=== PATIENT | male | born 1995 | race Caucasian/White ===

== ENCOUNTER 2017-04-07 01:36 | Emergency (ER) | payer OTHER ==
[2017-04-07 01:42] VITALS: RESP 16; TEMP 98.1
--- NOTE | 2017-04-07 02:54 | EDPHY ---
H & P Stated Complaint: fall/head lac Time Seen by Provider: 04/07/17 01:39 HPI/ROS: HPI: The patient presents with forehead laceration which occurred just prior to arrival. He was out drinking alcohol tonight and was staying at a friend's house on the couch. He got up to go to the bathroom and when he was walking back in the dark room trying to make his way to the sofa he tripped and fell forward, hitting his head on a stone fireplace. He did not lose consciousness. He does not have a headache, nausea or vomiting, vision changes, weakness of his arms or legs. His tetanus vaccine is up-to-date. REVIEW OF SYSTEMS Constitutional: No fever, no chills. Eyes: No discharge. ENT: No sore throat. Musculoskeletal: No back pain. Skin: No rashes. Neurological: No headache. PMHx: Healthy TRAUMA PHYSICAL General Appearance: Alert, no distress Head: 6 cm laceration to right forehead at hairline, no galea involvement Eyes: Pupils equal, round, reactive ENT, Mouth:, no oral trauma Neck: Non- tender, trachea midline Respiratory: Breathing comfortably Abdomen: Abdomen is soft and non-tender, pelvis stable Skin: No lacerations, No abrasion Extremities: Non-tender, full range of motion Neurological: A&Ox3, GCS=15,normal motor function with 5/5 strength in all 4 extremities, normal sensory exam Source: Patient, EMS Exam Limitations: No limitations - Personal History Current Tetanus/Diphtheria Vaccine: Unsure Current Tetanus Diphtheria and Acellular Pertussis (TDAP): Unsure - Medical/Surgical History Hx Asthma: No Hx Chronic Respiratory Disease: No Hx Diabetes: No Hx Cardiac Disease: No Hx Renal Disease: No Hx Cirrhosis: No Hx Alcoholism: No Hx HIV/AIDS: No Hx Splenectomy or Spleen Trauma: No Other PMH: wisdom teeth - Social History Smoking Status: Never smoked Constitutional: Initial Vital Signs Temperature (C) 36.7 C 04/07/17 01:41 Heart Rate 89 04/07/17 01:41 Respiratory Rate 16 04/07/17 01:41 Blood Pressure 143/98 H 04/07/17 01:41 O2 Sat (%) 98 04/07/17 01:41 O2 Delivery Mode Room Air Allergies/Adverse Reactions: No Known Allergies Allergy (Unverified 04/07/17 01:41) Home Medications: Medication Instructions Recorded NK [No Known Home Meds] 04/07/17 Medical Decision Making Procedures: LACERATION REPAIR Procedure: Laceration repair. Verbal consent was obtained from the patient. The 6 cm linear laceration on the right forehead was anesthetized using lidocaine with epinephrine. The wound was scrubbed, draped and explored to its base with a gloved finger. There were no deep structures involved. No tendon injury was identified. . The wound was repaired with 5. 0 simple interrupted sutures of nylon. The wound repair was simple. The procedure was performed by myself. Differential Diagnosis: This is a 22-year-old man who is brought in by ambulance after a fall which occurred just prior to arrival. He was slightly intoxicated, walking to a couch in the dark when he fell, landing on a fireplace, sustaining a laceration to his forehead. He did not have any loss of consciousness, headache, vomiting , weakness of his arms or legs, I do not feel he meets criteria for CT scanning to evaluate for intracranial hemorrhage. He may have sustained a mild concussion. In the emergency department, laceration was repaired by me. He was given instructions on wound care. He is sober enough for discharge and left in good condition. Departure - Departure Disposition: Home, Routine, Self-Care Clinical Impression: Fall Qualifiers: Encounter type: initial encounter Qualified Code(s): W19.XXXA - Unspecified fall, initial encounter Laceration of head Qualifiers: Encounter type: initial encounter Location of open wound of head: scalp Foreign body presence: without foreign body Qualified Code(s): S01.01XA - Laceration without foreign body of scalp, initial encounter Condition: Good Instructions: Care For Your Stitches (ED), Facial Laceration (ED) Additional Instructions: You can return to the emergency room in 5 days to have your stitches removed. Otherwise you can see her primary care doctor and they can take him out in the office. Referrals: KIRAN MOTA [Other] - As per Instructions
[2017-04-07 03:11] VITALS: BP 119/75; PULSE 86; O2SAT 96
== END 2017-04-07 03:10 | disposition home or self-care (01) ==
LOC: EDBD 01:36
PROC: 0HQ1XZZ Repair Face Skin, External Approach (ICD-10-PCS; principal; 2017-04-07)
DX: S01.81XA Laceration without foreign body of other part of head, initial encounter (principal); W01.198A Fall on same level from slipping, tripping and stumbling with subsequent striking against other object, initial encounter; Y92.009 Unspecified place in unspecified non-institutional (private) residence as the place of occurrence of the external cause; Y99.8 Other external cause status; Y93.01 Activity, walking, marching and hiking

== ENCOUNTER 2018-09-06 19:34 | Emergency (ER) | payer OTHER ==
[2018-09-06] MEDS ORDERED: diphenhydrAMINE 25 MG CAP PO ONE ×2 (20:24→20:27)
--- NOTE | 2018-09-06 20:24 | EDPHY ---
H & P Stated Complaint: Allergic Reation & Diarrhea Time Seen by Provider: 09/06/18 19:59 HPI/ROS: CHIEF COMPLAINT: Allergic reaction HISTORY OF PRESENT ILLNESS: The patient is a 23-year-old healthy man with no significant past medical history or allergies. He states that about an hour ago he felt sudden abdominal cramping and had diarrhea. During the episode of diarrhea he developed hives over his chest and back. Although symptoms have now resolved. He did not take any medications. No fevers. No vomiting or nausea. No new foods or exposures. No insect bites. Severity: Moderate Modifying factors: Currently asymptomatic REVIEW OF SYSTEMS: Constitutional: denies: chills, fever, recent illness, recent injury EENTM: denies: blurred vision, double vision, nose congestion Respiratory: denies: cough, shortness of breath Cardiac: denies: chest pain, irregular heart rate, lightheadedness, palpitations Gastrointestinal/Abdominal: See HPI Genitourinary: denies: dysuria, frequency, hematuria, pain Musculoskeletal: denies: joint pain, muscle pain Skin: See HPI Neurological: denies: headache, numbness, paresthesia, tingling, dizziness, weakness Hematologic/Lymphatic: denies: blood clots, easy bleeding, easy bruising Immunologic/allergic: denies: HIV/AIDS, transplant 10 systems reviewed and negative except as noted EXAM: GENERAL: Well-appearing, well-nourished and in no acute distress. HEAD: Atraumatic, normocephalic. EYES: Pupils equal round and reactive to light, extraocular movements intact, sclera anicteric, conjunctiva are normal. ENT: TMs normal, nares patent, oropharynx clear without exudates. Moist mucous membranes. NECK: Normal range of motion, supple without lymphadenopathy or JVD. LUNGS: Breath sounds clear to auscultation bilaterally and equal. No wheezes rales or rhonchi. HEART: Regular rate and rhythm without murmurs, rubs or gallops. ABDOMEN: Soft, nontender, normoactive bowel sounds. No guarding, no rebound. No masses appreciated. BACK: No CVA tenderness, no spinal tenderness, step-offs or deformities EXTREMITIES: Normal range of motion, no pitting or edema. No clubbing or cyanosis. NEUROLOGICAL: Cranial nerves II through XII grossly intact. Normal speech, normal gait. 5/5 strength, normal movement in all extremities, normal sensation , normal reflexes PSYCH: Normal mood, normal affect. SKIN: Warm, dry, normal turgor, no visible rashes or lesions. Source: Patient Exam Limitations: No limitations - Personal History Current Tetanus/Diphtheria Vaccine: Yes Current Tetanus Diphtheria and Acellular Pertussis (TDAP): Yes - Medical/Surgical History Hx Asthma: No Hx Chronic Respiratory Disease: No Hx Diabetes: No Hx Cardiac Disease: No Hx Renal Disease: No Hx Cirrhosis: No Hx Alcoholism: No Hx HIV/AIDS: No Hx Splenectomy or Spleen Trauma: No Other PMH: wisdom teeth - Social History Smoking Status: Never smoked Alcohol Use: None Constitutional: Initial Vital Signs Temperature (C) 36.7 C 09/06/18 19:49 Heart Rate 105 H 09/06/18 19:49 Respiratory Rate 16 09/06/18 19:49 Blood Pressure 139/98 H 09/06/18 19:49 O2 Sat (%) 98 09/06/18 19:49 O2 Delivery Mode Room Air Allergies/Adverse Reactions: No Known Allergies Allergy (Unverified 09/06/18 19:48) Home Medications: Medication Instructions Recorded NK [No Known Home Meds] 04/07/17 Medical Decision Making ED Course/Re-evaluation: Patient is currently asymptomatic. He he had what sounds like a histamine reaction. He had hives and GI symptoms. No airway difficulty or difficulty breathing. His symptoms resolved spontaneously without medication. Will treat with Benadryl and observed. The patient denies recent shellfish or fish ingestions. 8:55 p.m. the patient remains asymptomatic. He is eager to go home. We discussed taking more Benadryl at home if needed. We discussed indications for returning. 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 Differential Diagnosis: Partial list of the Differential diagnosis considered include but were not limited to; allergic reaction, food allergy and although unlikely based on the history and physical exam, I also considered scombroid poisoning, appendicitis, perforation. - Data Points Medications Given: Discontinued Medications Diphenhydramine HCl (Benadryl) 50 mg PO EDNOW ONE Stop: 09/06/18 20:25 Last Admin: 09/06/18 20:26 Dose: 50 mg Departure - Departure Disposition: Home, Routine, Self-Care Clinical Impression: Allergic reaction Qualifiers: Encounter type: initial encounter Qualified Code(s): T78.40XA - Allergy, unspecified, initial encounter Condition: Fair Instructions: General Allergic Reaction (ED) Referrals: NONE *PRIMARY CARE P,. [Primary Care Provider] - As per Instructions Brittnee Abraham MD [place] [place] - As per Instructions
[2018-09-06 20:53] VITALS: BP 140/84
== END 2018-09-06 20:53 | disposition home or self-care (01) ==
DX: R19.7 Diarrhea, unspecified (principal); L50.9 Urticaria, unspecified; T78.40XA Allergy, unspecified, initial encounter